=== PATIENT | male | born 1990 | race Caucasian/White ===

== ENCOUNTER 2019-08-05 16:49 | Emergency (ER) | payer MEDICAID ==
[~2019-08-05] VITALS: Ht 170.2 cm; Wt 84.9 kg
[~2019-08-05 16:49] MED LIST: CEPH-443 PO; CIPR500T4 PO; HYDR-4011 PO; IBUP-1542 PO; SULF1TAB31 PO; Work Note
[2019-08-05 16:53] VITALS: BP 138/84; PULSE 125; RESP 24; Ht 170.2 cm; Wt 84.9 kg
[2019-08-05] MEDS ORDERED: ACETAMINOPHEN 500 MG TAB PO STA (17:28)
== END 2019-08-05 18:11 | disposition home or self-care (01) ==
LOC: FTE 16:49
DX: L03.314 Cellulitis of groin (principal)
CPT/HCPCS: Z7502; Z7610; 99282

== ENCOUNTER 2019-08-10 00:16 | Inpatient (IN) | payer MEDICAID ==
[~2019-08-10] VITALS: Ht 172.7 cm; Wt 83.7 kg
[2019-08-10 00:19] VITALS: Ht 172.7 cm; Wt 83.7 kg
[2019-08-10] MEDS ORDERED: morphine 4 MG/ML VIAL IV STA (03:19)
[2019-08-10] MEDS ORDERED: ONDANSETRON 4 MG INJ IV STA (03:19)
[2019-08-10] MEDS ORDERED: SOD CHLORIDE 0.9% 1,000 ML IV ONE ×2 (03:30→05:30)
[2019-08-10] MEDS ORDERED: PIPER-TAZO 3.375 GM IV (PMX) 100 ML IVPB STA (04:25)
[2019-08-10] MEDS ORDERED: CLINDAMYCIN 900 MG (PMX) 50 ML IVPB STA (04:25)
[2019-08-10] MEDS ORDERED: VANCOMYCIN 1 GM (PMX) 250 ML IVPB ONE (04:30)
[2019-08-10] MEDS ORDERED: ONDANSETRON 4 MG INJ IV PRN ×2 (05:00→11:00)
[2019-08-10] MEDS ORDERED: ACETAMINOPHEN 325 MG TAB PO PRN ×2 (05:00→11:00)
[2019-08-10] MEDS ORDERED: HYDROmorphONE 2 MG/ML SYG IV STA (05:25)
[2019-08-10] MEDS ORDERED: MAGNESIUM HYDROXIDE 30ML CUP PO PRN (11:00)
[2019-08-10] MEDS ORDERED: HYDROCODONE/APAP (5/325) TAB PO PRN (11:00)
[2019-08-10] MEDS ORDERED: NACL 0.9% 3 ML SYG IV SCH (11:00)
[2019-08-10] MEDS ORDERED: VANCOMYCIN IV PER PHARMACY XX SCH (11:30)
[2019-08-10] MEDS: morphine 2 MG INJ IV PRN (11:38)
[2019-08-10] MEDS: VANCOMYCIN 1 GM 250 ML IVPB SCH ×2 (11:38→20:35)
[2019-08-10 18:00] VITALS: BP 116/60; PULSE 83; RESP 16
[2019-08-10] MEDS: HYDROCODONE/APAP (5/325) TAB PO PRN (18:33)
[2019-08-10 20:00] VITALS: BP 112/61; PULSE 80; RESP 18
[2019-08-10] MEDS: CIPROFLOXACIN 400MG/D5W 200 ML IVPB SCH (22:55)
[2019-08-11 02:00] VITALS: BP 104/54; PULSE 75; RESP 17
[2019-08-11] MEDS: VANCOMYCIN 1 GM 250 ML IVPB SCH ×2 (04:27→11:55)
[2019-08-11] MEDS: HYDROCODONE/APAP (5/325) TAB PO PRN (04:32)
[2019-08-11 08:00] VITALS: BP 93/53; PULSE 78; RESP 16
[2019-08-11] MEDS: CIPROFLOXACIN 400MG/D5W 200 ML IVPB SCH ×2 (08:14→23:19)
[2019-08-11] MEDS ORDERED: FLU VACC QS 2019-20 (6MOS UP) 0.5 ML SYG IM* ONE (11:00)
[2019-08-11 14:00] VITALS: BP 130/72; PULSE 87; RESP 16
[2019-08-11] MEDS: morphine 2 MG INJ IV PRN (16:08)
[2019-08-11] MEDS: VANCOMYCIN 1.25 GM/NS 250 ML 250 ML IVPB SCH (20:17)
[2019-08-11 20:28] VITALS: BP 118/69; PULSE 67; RESP 19
[2019-08-12 02:17] VITALS: BP 97/62; PULSE 76; RESP 18
[2019-08-12] MEDS: VANCOMYCIN 1.25 GM/NS 250 ML 250 ML IVPB SCH (05:58)
[2019-08-12 08:00] VITALS: BP 125/66; PULSE 74; RESP 16
[2019-08-12] MEDS: CIPROFLOXACIN 400MG/D5W 200 ML IVPB SCH (09:01)
[2019-08-12 14:00] VITALS: BP 116/68; PULSE 71; RESP 16
[2019-08-12] MEDS ORDERED: CEFAZOLIN 1 GM/50 ML (PMX) 50 ML IVPB SCH (14:00)
== END 2019-08-12 15:50 | disposition home or self-care (01) | DRG 872 ==
LOC: FTE 00:16 → 5EC 04:53
PROVIDERS: ADMIT Internal Medicine; ATTEND Internal Medicine
PROC: 0H99XZX Drainage of Perineum Skin, External Approach, Diagnostic (ICD-10-PCS; principal; 2019-08-10)
DX: A41.9 Sepsis, unspecified organism (principal); L02.214 Cutaneous abscess of groin; R74.0 Nonspecific elevation of levels of transaminase and lactic acid dehydrogenase [LDH]; B95.61 Methicillin susceptible Staphylococcus aureus infection as the cause of diseases classified elsewhere
CPT/HCPCS: 36415; 76536; 80048; 80053; 80061; 80202; 83036; 83735; 84100; 84132; 84436; 84443; 84479; 85025; 86704; 86709; 86803; 87070; 87340; 90686; 96361; 96374; 96375; J0744; J1170; J2270; J2405; J2543; J3370; J7030